=== PATIENT | male | born 1930 | race Caucasian/White ===

== ENCOUNTER 2018-03-21 00:54 | Emergency (ER) | payer MEDICARE, OTHER ==
[~2018-03-21] VITALS: Ht 162.6 cm; Wt 54.1 kg
[~2018-03-21 00:54] MED LIST: ACETAMINOPHEN500 M1 PO; ATIVAN1 MG PO; BAYER CHEWABLE81 MG PO; LEVAQUIN500 MG PO; MUCINEX DM ER1 EAC1 PO; PRAVACHOL40 MG PO; PREDNISONE20 MG PO; PROSCAR5 MG PO
[2018-03-21 00:58] VITALS: Ht 162.6 cm; Wt 54.1 kg
[2018-03-21] MEDS ORDERED: LISINOPRIL10 MG PO (01:01)
[2018-03-21] MEDS ORDERED: COREG 3.1253.125 MG PO (01:01)
[2018-03-21] MEDS ORDERED: IBUPROFEN200 MG PO (01:02)
[2018-03-21] MEDS ORDERED: SYNTHROID25 MCG PO (01:03)
[2018-03-21] MEDS ORDERED: BENZONATATE200 MG PO (01:03)
[2018-03-21 01:24] LABS: BASOPHILS 0.1 % (0-2); EOSINOPHILS 1.7 % (0-7); HEMATOCRIT 42.5 % (42.0-54.0); HEMOGLOBIN 14.3 g/dL (13.5-17.5); IMMATURE GRANULOCYTES 0.6 % (0-5); MCHC 33.6 g/dL (31.0-37.0); MCV 89.3 fL (80.0-100.0); MEAN PLATELET VOLUME 10.1 fL (7.4-10.4); MONOCYTES 15.2 % (2-11); NEUTROPHILS 67.4 % (40-80); RBC 4.76 10x6/uL (4.20-6.10); RDW 14.8 % (11.5-14.5); WBC 12.9 10x3/uL (4.8-10.8)
[2018-03-21 01:25] LABS: PLATELET COUNT 267 10x3/uL (130-400)
[2018-03-21 01:45] LABS: ALBUMIN 3.1 g/dL (3.4-5.0); ALKALINE PHOSPHATASE 48 U/L (46-116); ALT (SGPT) 17 U/L (10-68); BILIRUBIN - TOTAL 0.47 mg/dL (0.2-1.3); CALC OSMOLALITY 278 mosm/kg (275-300); CALCIUM 8.8 mg/dL (8.5-10.1); CARBON DIOXIDE 27.6 mmol/L (21.0-32.0); CHLORIDE - SERUM 101 mmol/L (98-107); CREATININE - SERUM 1.6 mg/dL (0.6-1.3); GLUCOSE 103 mg/dL (74-106); POTASSIUM - SERUM 4.3 mmol/L (3.5-5.1); PROTEIN - SERUM 6.9 g/dL (6.4-8.2); SODIUM 136 mmol/L (136-145); UREA NITROGEN 33 mg/dL (7-18); eGFR NON AFRICAN AMERICAN 43 mL/min (90-120)
[2018-03-21 01:51] LABS: PRO BNP 471 pg/mL (0-450); TROPONIN-I < 0.017 ng/mL (0.000-0.060)
[2018-03-21] MEDS ORDERED: ZITHROMAX500 MG PO (02:24)
[2018-03-21 02:26] VITALS: BP 117/67
== END 2018-03-21 02:36 | disposition home or self-care (01) ==
LOC: D.ER 00:54
PROVIDERS: Family Medicine
DX: N28.9 Disorder of kidney and ureter, unspecified (principal); R05 Cough; I25.10 Atherosclerotic heart disease of native coronary artery without angina pectoris; N42.9 Disorder of prostate, unspecified; Z90.5 Acquired absence of kidney; Z85.828 Personal history of other malignant neoplasm of skin

== ENCOUNTER 2019-03-07 11:34 | Observation (INO) | payer MEDICARE, OTHER ==
[~2019-03-07] VITALS: Ht 162.6 cm; Wt 56.4 kg
[~2019-03-07 11:34] MED LIST changes: +BENZONATATE200 MG PO; +COREG 3.1253.125 MG PO; +IBUPROFEN200 MG PO; +LISINOPRIL10 MG PO; +SYNTHROID25 MCG PO; +ZITHROMAX500 MG PO
[2019-03-07 12:03] LABS: BASOPHILS 0.3 % (0-2); EOSINOPHILS 5.3 % (0-7); HEMATOCRIT 27.2 % (42.0-54.0); IMMATURE GRANULOCYTES 0.3 % (0-5); LYMPHOCYTES 28.4 % (15-50); MCH 21.9 pg (26.0-34.0); MCHC 29.4 g/dL (31.0-37.0); MCV 74.3 fL (80.0-100.0); MEAN PLATELET VOLUME 10.3 fL (7.4-10.4); MONOCYTES 15.8 % (2-11); NEUTROPHILS 49.9 % (40-80); RBC 3.66 10x6/uL (4.20-6.10); RDW 17.7 % (11.5-14.5)
[2019-03-07 12:04] LABS: PLATELET COUNT 428 10x3/uL (130-400)
--- NOTE | 2019-03-07 13:21 | NUR ---
PATIENT ARRIVED HERE FROM HIS DR OFFICE AND HE WILL BE GETTING A BLOOD TRANSFUSION. HE IS SITTING UP IN BED, HE IS ALERT AND ORIENTED. THERE IS FAMILY AT BEDSIDE. HE DENIES ANY NEEDS AT THIS TIME. WE DO HAVE A DIET ORDER COMING IN.
--- NOTE | 2019-03-07 14:41 | NUR ---
IV START IN LEFT FOREARM. ONE STICK 20 G. PATIENT TOLERATED.
[2019-03-07 14:52] VITALS: BP 144/89
[2019-03-07] MEDS ORDERED: LIPITOR80 MG PO (15:26)
[2019-03-07] MEDS ORDERED: PLAVIX75 MG PO (15:29)
[2019-03-07 15:30] VITALS: BP 169/77; Ht 162.6 cm; Wt 56.4 kg
--- NOTE | 2019-03-07 16:46 | NUR ---
ADMISSION DONE, HISTORY AND MEDICATION LIST. PATIENT IS ALERT AND ORIENTED AND DENIES ANY NEEDS AT THIS TIME. HE HAS FAMILY AT BEDSIDE. THE CROSS CHECK HAS BEEN DRAWN AND WE ARE WAITING FOR THE BLOOD TO BE READY. THERE IS AN ORDER TO TRANSFUSE 2 UNITS.
--- NOTE | 2019-03-07 18:24 | NUR ---
FIRST UNIT OF BLOOD IS INFUSING. PATIENT IS TOLERATING WELL.
--- NOTE | 2019-03-07 19:45 | NUR ---
PT CARE ASSUMED. BESIDE SHIFT REPORT COMPLETE. PT IN BED A&O, RR EVEN AND UNLABORED ON RA. PRBC INFUSING TO LEFT FA. PT DENIES PAIN OR DISCOMFORT AT THIS TIME. NO S/S OF DISTRESS NOTED. CALL LIGHT IN REACH. WILL CTM.
[2019-03-07 20:00] VITALS: BP 162/71
--- NOTE | 2019-03-07 21:55 | NUR ---
FIRST UNIT OF PRBC FINISHED INFUSING. PT TOLERATED WELL. NO S/S OF AN ADVERSE REACTION NOTED. WILL CTM.
--- NOTE | 2019-03-07 22:25 | NUR ---
SECOND UNIT OF PRBC INFUSING PER ORDER. NO S/S OF AN ADVERSE REACTION NOTED AT THIS TIME. WILL CTM.
[2019-03-08] VITALS: BP 194/80
--- NOTE | 2019-03-08 00:56 | NUR ---
SECOND UNIT OF PRBC COMPLETE. NO S/S OF AN ADVERSE REACTION NOTED. CALL LIGHT IN REACH. WILL CTM.
[2019-03-08 01:13] LABS: BASOPHILS 0.3 % (0-2); EOSINOPHILS 4.3 % (0-7); HEMATOCRIT 32.3 % (42.0-54.0); IMMATURE GRANULOCYTES 0.1 % (0-5); LYMPHOCYTES 27.7 % (15-50); MCH 24.2 pg (26.0-34.0); MEAN PLATELET VOLUME 9.8 fL (7.4-10.4); MONOCYTES 16.6 % (2-11); RBC 4.13 10x6/uL (4.20-6.10); RDW 18.6 % (11.5-14.5); WBC 7.4 10x3/uL (4.8-10.8)
[2019-03-08 01:16] LABS: MCV 78.2 fL (80.0-100.0); PLATELET COUNT 309 10x3/uL (130-400)
[2019-03-08 04:00] VITALS: BP 161/77
--- NOTE | 2019-03-08 10:12 | NUR ---
DISCHARGE INSTRUCTIONS REVIEWED WITH PT AND VERBALIZES UNDERSTANDING WITH NO QUESTIONS. SL REMOVED LEFT FOREARM WITH CATH TIP INTACT. LEFT FLOOR VIA W/C WITH ALL PERSONAL BELONGINGS AND LEFT FACILITY VIA PRIVATE VEHICLE WITH HIMSELF DRIVING.
--- NOTE | 2019-03-08 10:52 | NUR ---
I have reviewed this patient and I concur with the Shift Assessment completed by the Licensed Practical Nurse today this shift.
--- NOTE | 2019-03-10 08:41 | MORECARE ---
CASE MANAGEMENT DISCHARGE SUMMARY PATIENT: JULIANNE GONG D UNIT: [id number] ADM DATE: 03/07/19 AGE: 88 : [birth year] SEX: M ROOM/BED: D.2105 AUTHOR: MATILDA MARTINEZ PHYSICIAN: REFERRING PHYSICIAN: BRANDIE WALSH MD DATE OF SERVICE: 03/10/19 Discharge Plan Patient Name: JULIANNE GONG Facility: [facility]:[place] : 1930 Planned Disposition: Home Anticipated Discharge Date: 03/08/19 Discharge Date: 03/08/2019 Expected LOS: 1 Initial Reviewer: [email or web address] Initial Review Date: 03/10/2019 Generated: 03/10/19 9:41 am Patient Name: JULIANNE GONG Page [id number] at 0841 All edits/amendments must be made on the electronic document DICTATION DATE: 03/10/19840 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
== END 2019-03-08 10:14 | disposition home or self-care (01) ==
LOC: D.M2 11:34 → OBSVTIME 11:35 → D.M2 03-08 10:14
PROVIDERS: ADMIT Family Medicine; ATTEND Family Medicine
DX: D64.9 Anemia, unspecified (principal); I25.10 Atherosclerotic heart disease of native coronary artery without angina pectoris; R53.83 Other fatigue; R19.7 Diarrhea, unspecified; Z87.891 Personal history of nicotine dependence